=== PATIENT | male | born 1955 | race African-American/Black ===

== ENCOUNTER 2022-03-28 20:08 | Inpatient (IN) | payer MEDICARE ==
[~2022-03-28] VITALS: Ht 175.3 cm; Wt 61.7 kg
[2022-03-28] MEDS ORDERED: SODIUM CHLORIDE 0.9% 1,000 ML IV ONE (21:15)
[2022-03-28] MEDS ORDERED: ENALAPRIL 2.5MG/2ML VIAL 2ML IV ONE (22:45)
[2022-03-28 23:36] LABS: CHLORIDE 101 mEq/L (98-107)
[2022-03-28 23:37] LABS: BASOPHILS % 0.5 % (0.0-2.0); EOSINOPHILS % 0.4 % (0.0-5.0); HEMATOCRIT. 31.2 % (42.0-52.0); HEMOGLOBIN. 10.7 g/dL (14.0-18.0); LYMPHOCYTES % 8.9 % (20.0-50.0); MEAN CORPUSCULAR HEMOGLOBIN 31.7 pg (28.0-32.0); MEAN CORPUSCULAR VOLUME 92.7 fL (80.0-94.0); MONOCYTES % 5.7 % (2.0-8.0); NEUTROPHILS % 84.5 % (40.0-76.0); PLATELET 248 x1000/uL (130-400); RED BLOOD CELL COUNT 3.37 mill/uL (4.7-6.1); RED CELL DISTRIBUTION WIDTH 16.9 % (11.6-14.6)
[2022-03-29 05:00] VITALS: BP 197/99
[2022-03-29 05:46] VITALS: BP 197/99
[2022-03-29 08:00] VITALS: BP 203/105
[2022-03-29] MEDS ORDERED: HYDRALAZINE 20MG/ML VIAL IV NR (08:30)
[2022-03-29] MEDS ORDERED: ACETAMINOPHEN 325MG TABLET PO PRN (08:30)
[2022-03-29] MEDS ORDERED: ONDANSETRON HCL 4MG/2ML INJ IV PRN (08:30)
[2022-03-29] MEDS: AMLODIPINE 10MG TABLET PO SCH (08:44)
[2022-03-29] MEDS: ASPIRIN 81MG TABLET PO SCH (08:44)
[2022-03-29] MEDS: ENOXAPARIN 30MG/0.3ML SYR SUBCUT SCH (09:00)
[2022-03-29 12:00] VITALS: BP 182/107
[2022-03-29] MEDS: CLONIDINE 0.1MG TABLET PO PRN (14:49)
[2022-03-29 16:00] VITALS: BP_SYST 143; BP_SYST 170; BP_DIAS 101; BP_DIAS 83
[2022-03-29] MEDS ORDERED: LOSARTAN POTASSIUM 100 MG TABLET PO SCH (18:30)
[2022-03-29 20:00] VITALS: BP 136/72
[2022-03-29] MEDS: ATORVASTATIN CALCIUM 40MG TABLET PO SCH (21:43)
[2022-03-29] MEDS: LOSARTAN POTASSIUM 100 MG TABLET PO SCH (21:44)
[2022-03-30] VITALS: BP 151/90
[2022-03-30 04:00] VITALS: BP 157/86
[2022-03-30 07:38] LABS: BASOPHILS % 0.6 % (0.0-2.0); EOSINOPHILS % 2.2 % (0.0-5.0); HEMATOCRIT. 27.4 % (42.0-52.0); HEMOGLOBIN. 9.6 g/dL (14.0-18.0); LYMPHOCYTES % 23.7 % (20.0-50.0); MEAN CORPUSCULAR VOLUME 91.8 fL (80.0-94.0); MEAN PLATELET VOLUME 8.2 fl (7.4-10.4); MONOCYTES % 7.3 % (2.0-8.0); NEUTROPHILS % 66.2 % (40.0-76.0); PLATELET 231 x1000/uL (130-400); RED BLOOD CELL COUNT 2.99 mill/uL (4.7-6.1); RED CELL DISTRIBUTION WIDTH 16.5 % (11.6-14.6)
[2022-03-30 08:03] VITALS: BP 179/103
[2022-03-30] MEDS: ASPIRIN 81MG TABLET PO SCH (08:32)
[2022-03-30] MEDS: ENOXAPARIN 30MG/0.3ML SYR SUBCUT SCH (08:33)
[2022-03-30] MEDS: AMLODIPINE 10MG TABLET PO SCH (08:33)
[2022-03-30] MEDS: LOSARTAN POTASSIUM 100 MG TABLET PO SCH (08:33)
[2022-03-30 11:26] VITALS: BP_SYST 162; BP_SYST 163; BP_SYST 165; BP_DIAS 81; BP_DIAS 88; BP_DIAS 95
[2022-03-30] MEDS ORDERED: HYDRALAZINE HCL 100MG TABLET PO NR (14:45)
[2022-03-30 16:04] VITALS: BP 154/83
[2022-03-30 19:56] VITALS: BP 158/88
[2022-03-30 20:19] LABS: CLARITY URINE CLEAR (CLEAR); COLOR URINE YELLOW (YELLOW); KETONES URINE TRACE (NEGATIVE); LEUKOCYTE ESTERASE URINE NEGATIVE (NEGATIVE); NITRITE URINE NEGATIVE (NEGATIVE); OCCULT BLOOD URINE NEGATIVE (NEGATIVE); PROTEIN URINE 1+ (NEGATIVE); SPECIFIC GRAVITY URINE 1.018 (1.005-1.030)
[2022-03-30 20:35] LABS: *AMPHETAMINES SCREEN URINE NEGATIVE (NEGATIVE); *BARBITURATES SCREEN URINE NEGATIVE (NEGATIVE); *BENZODIAZEPINES SCREEN URINE NEGATIVE (NEGATIVE); *COCAINE SCREEN URINE NEGATIVE (NEGATIVE); CANNABINOID URINE SCREEN PRESUMTIVE POSITIVE (NEGATIVE); METHADONE URINE SCREEN NEGATIVE (NEGATIVE); OPIATES URINE SCREEN NEGATIVE (NEGATIVE); PHENCYCLIDINE URINE SCREEN NEGATIVE (NEGATIVE)
[2022-03-30] MEDS: HYDRALAZINE HCL 100MG TABLET PO SCH (21:00)
[2022-03-30] MEDS: ATORVASTATIN CALCIUM 40MG TABLET PO SCH (21:09)
[2022-03-31] VITALS (8 sets, daily range): BP systolic 140–177; BP diastolic 75–100
[2022-03-31] MEDS: HYDRALAZINE HCL 100MG TABLET PO SCH ×3 (00:18→20:50)
[2022-03-31] MEDS: CLONIDINE 0.1MG TABLET PO PRN ×2 (03:01→20:50)
[2022-03-31] MEDS: ASPIRIN 81MG TABLET PO SCH (08:29)
[2022-03-31] MEDS: LOSARTAN POTASSIUM 100 MG TABLET PO SCH (08:29)
[2022-03-31] MEDS: AMLODIPINE 10MG TABLET PO SCH (08:30)
[2022-03-31] MEDS: ENOXAPARIN 30MG/0.3ML SYR SUBCUT SCH (08:30)
[2022-03-31] MEDS: ATORVASTATIN CALCIUM 40MG TABLET PO SCH (20:50)
[2022-04-01] VITALS: BP 143/80
[2022-04-01 03:40] VITALS: BP 171/90
[2022-04-01] MEDS: CLONIDINE 0.1MG TABLET PO PRN (03:50)
[2022-04-01 08:00] VITALS: BP 158/82
[2022-04-01] MEDS: ASPIRIN 81MG TABLET PO SCH (09:21)
[2022-04-01] MEDS: LOSARTAN POTASSIUM 100 MG TABLET PO SCH (09:22)
[2022-04-01] MEDS: ENOXAPARIN 30MG/0.3ML SYR SUBCUT SCH (09:22)
[2022-04-01] MEDS: AMLODIPINE 10MG TABLET PO SCH (09:22)
[2022-04-01] MEDS: HYDRALAZINE HCL 100MG TABLET PO SCH ×2 (09:22→20:52)
[2022-04-01 12:00] VITALS: BP 125/75
[2022-04-01 16:00] VITALS: BP 149/89
[2022-04-01] MEDS ORDERED: LIP40 PO (19:53)
[2022-04-01] MEDS ORDERED: ASPI-1160 PO (19:53)
[2022-04-01] MEDS ORDERED: LOSA100T3 PO (19:53)
[2022-04-01] MEDS ORDERED: AMLO10TA80 PO (19:53)
[2022-04-01] MEDS ORDERED: HYDR100T26 PO (19:53)
[2022-04-01 20:00] VITALS: BP 150/88
[2022-04-01] MEDS: ATORVASTATIN CALCIUM 40MG TABLET PO SCH (20:52)
[2022-04-02] VITALS: BP 152/83
[2022-04-02 04:00] VITALS: BP 158/94
[2022-04-02 08:00] VITALS: BP 156/90
[2022-04-02] MEDS: AMLODIPINE 10MG TABLET PO SCH (09:10)
[2022-04-02] MEDS: ASPIRIN 81MG TABLET PO SCH (09:11)
[2022-04-02] MEDS: HYDRALAZINE HCL 100MG TABLET PO SCH (09:12)
[2022-04-02] MEDS: LOSARTAN POTASSIUM 100 MG TABLET PO SCH (09:12)
[2022-04-02] MEDS: ENOXAPARIN 30MG/0.3ML SYR SUBCUT SCH (09:12)
[2022-04-02 12:00] VITALS: BP 143/76
[2022-04-02 13:23] VITALS: BP 143/76
== END 2022-04-02 15:00 | disposition home or self-care (01) | DRG 74 ==
LOC: ER 20:08 → MICUSO 03-29 00:36 → 8WST 03-29 04:42
PROVIDERS: ADMIT Internal Medicine Nephrology; ATTEND Internal Medicine Nephrology
DX: G90.8 Other disorders of autonomic nervous system (principal); E44.0 Moderate protein-calorie malnutrition; N17.9 Acute kidney failure, unspecified; D64.9 Anemia, unspecified; I16.0 Hypertensive urgency; I12.9 Hypertensive chronic kidney disease with stage 1 through stage 4 chronic kidney disease, or unspecified chronic kidney disease; N18.9 Chronic kidney disease, unspecified; Z20.822 Contact with and (suspected) exposure to COVID-19; Z68.20 Body mass index [BMI] 20.0-20.9, adult; Z91.14 Patient's other noncompliance with medication regimen; Z92.3 Personal history of irradiation; Z86.73 Personal history of transient ischemic attack (TIA), and cerebral infarction without residual deficits; Z85.47 Personal history of malignant neoplasm of testis; Z82.49 Family history of ischemic heart disease and other diseases of the circulatory system
CPT/HCPCS: 36415; 70551; 71045; 74176; 80048; 80053; 80305; 81003; 83605; 84484; 85025; 86850; 86870; 86880; 86900; 87426; 93005; 93306; 93880; 97116; 97161; 97530; 99285; J0360; J1650; J3490; J7030

== ENCOUNTER 2023-01-15 15:42 | Emergency (ER) | payer MEDICARE ==
[~2023-01-15] VITALS: Ht 175.3 cm; Wt 75.0 kg
[~2023-01-15 15:42] MED LIST: AMLO10TA80 PO; AMLO5TAB88 MT; ASPI-1160 PO; HYDR100T26 PO; LIP40 PO; LOSA100T4 PO
[2023-01-15 15:57] VITALS: BP 209/136; RESP 16; O2SAT 100
[2023-01-15 16:00] VITALS: PULSE 82
[2023-01-15 17:40] LABS: CHLORIDE 104 mEq/L (98-107)
[2023-01-15 17:41] LABS: BASOPHILS % 0.9 % (0.0-2.0); EOSINOPHILS % 1.3 % (0.0-5.0); HEMATOCRIT. 32.6 % (42.0-52.0); HEMOGLOBIN. 11.3 g/dL (14.0-18.0); LYMPHOCYTES % 18.3 % (20.0-50.0); MEAN CORPUSCULAR HEMOGLOBIN 30.5 pg (28.0-32.0); MEAN CORPUSCULAR VOLUME 87.9 fL (80.0-94.0); MEAN PLATELET VOLUME 7.8 fl (7.4-10.4); NEUTROPHILS % 73.5 % (40.0-76.0); PLATELET 266 x1000/uL (130-400); RED BLOOD CELL COUNT 3.71 mill/uL (4.7-6.1)
[2023-01-15] MEDS ORDERED: ACETAMINOPHEN 325MG TABLET PO ONE (18:30)
[2023-01-15] MEDS ORDERED: TETANUS, DIPHTHERIA, PERTUSSIS VAC/PF 0.5ML (>10YR OLD) IM ONE (18:30)
[2023-01-15] MEDS ORDERED: IBUPROFEN 800MG TABLET PO ONE (18:30)
[2023-01-15] MEDS ORDERED: AMLO5TAB88 MT (18:36)
[2023-01-15] MEDS ORDERED: IBUPROFEN 400MG TABLET PO NR (19:15)
== END 2023-01-15 19:05 | disposition home or self-care (01) ==
LOC: ER 15:42
DX: R42 Dizziness and giddiness (principal); I10 Essential (primary) hypertension; Z76.0 Encounter for issue of repeat prescription
CPT/HCPCS: 36415; 71045; 80053; 84484; 85025; 90715; 93005; 99285